=== PATIENT | male | born 1960 | race Caucasian/White ===

== ENCOUNTER → 2020-08-25 | Outpatient (CLI) | payer MEDICARE, BC ==
[~2020-08-25] MED LIST: ASPI81TA45 PO; ATOR80TA PO; CALC0.25 PO; CARV6.252 PO; DILT180C59 PO; ENAL20TA9 PO; FURO-92 PO; GENT15CR6 TP; INSU100I11 SC; INSU100I13 SC; SEVE800T7 PO; TERB250T14 PO
[2020-08-25 13:35] LABS: BASOPHILS % (AUTO) 1 % (0-1); EOSINOPHILS % (AUTO) 5 % (1-7); LYMPHOCYTES % (AUTO) 10 % (22-44); MEAN CORPUSCULAR HEMOGLOBIN 34.2 pg (27.5-34.5); MEAN PLATELET VOLUME 7.8 fL (7.4-10.4); MONOCYTES % (AUTO) 4 % (2-9); NEUTROPHILS % (AUTO) 79 % (42-75); PLATELET COUNT 239 x10^3/uL (130-400); RED BLOOD COUNT 3.12 x10^6/uL (4.38-5.82); RED CELL DISTRIBUTION WIDTH 17.1 % (9.4-14.8)
[2020-08-25 13:41] LABS: ALBUMIN 3.4 g/dL (3.4-5.0); ANION GAP 9 mmol/L (5-15); CALCIUM 8.9 mg/dL (8.5-10.1); CHLORIDE 98 mmol/L (98-107)
[2020-08-25 13:45] LABS: ALANINE AMINOTRANSFERASE 35 U/L (12-78); ALKALINE PHOSPHATASE 80 U/L (45-117); BILIRUBIN,TOTAL 0.5 mg/dL (0.2-1.0); INTERNATIONAL NORMALIZED RATIO 0.95 (0.93-1.1); PROTHROMBIN TIME 10.2 Seconds (9.6-11.5); TOTAL PROTEIN 7.6 g/dL (6.4-8.2)
[2020-08-25 13:51] LABS: MD NO
== END | disposition home or self-care (01) ==
LOC: STAR 12:31
PROVIDERS: ATTEND Surgery
DX: Z01.818 Encounter for other preprocedural examination (principal); I49.3 Ventricular premature depolarization; Z20.822 Contact with and (suspected) exposure to COVID-19
CPT/HCPCS: 36415; 71046; 80053; 85025; 85610; 85730; 93005; U0003

== ENCOUNTER 2020-08-30 11:57 | Day surgery (SDC) | payer BC, MEDICARE ==
[~2020-08-30] VITALS: Ht 165.1 cm; Wt 84.9 kg
[2020-08-30] MEDS ORDERED: CHLORHEXIDINE 15 ML UDC PO ONE (12:30)
[2020-08-30] MEDS ORDERED: CHLORHEXIDINE 15 ML UDC ONE (12:30)
[2020-08-30] MEDS ORDERED: LACTATED RINGERS 1,000 ML IV SCH (12:30)
[2020-08-30] MEDS ORDERED: SODIUM CHLORIDE 0.9% 1,000 ML IV SCH (13:00)
[2020-08-30] MEDS ORDERED: BUPIVACAINE/PF 0.5% ONE (14:15)
[2020-08-30] MEDS ORDERED: EPINEPHRINE 1 MG/ML, 1ML ONE (14:15)
[2020-08-30] MEDS ORDERED: FENTANYL PF 100 MCG/2ML ONE ×2 (14:22→15:59)
[2020-08-30] MEDS ORDERED: MIDAZOLAM 1 MG/ML, 2ML ONE (14:22)
[2020-08-30] MEDS ORDERED: ROCURONIUM 10MG/ML,5ML ONE (14:25)
[2020-08-30] MEDS ORDERED: GLYCOPYRROLATE 0.2MG/1ML, 5ML ONE (14:32)
[2020-08-30] MEDS ORDERED: ONDANSETRON 2MG/ML, 2ML ONE (14:32)
[2020-08-30] MEDS ORDERED: CEFAZOLIN 1,000 MG ONE (14:32)
[2020-08-30] MEDS ORDERED: PROPOFOL 10 MG/ML, 20ML ONE (14:32)
[2020-08-30] MEDS ORDERED: NEOSTIGMINE 1 MG/ML, 10ML ONE (14:32)
[2020-08-30] MEDS ORDERED: ROCURONIUM 10 MG/ML,10ML ONE (14:32)
[2020-08-30] MEDS ORDERED: OXYcodone 5 MG/5 ML ORAL.SOL UDC PO PRN (15:30)
[2020-08-30] MEDS ORDERED: hydrALAzine 20 MG/ML, 1ML IV PRN (15:30)
[2020-08-30] MEDS ORDERED: ACETAMINOPHEN 325 MG TABLET PO PRN (15:30)
[2020-08-30] MEDS ORDERED: HYDROmorphone 1 MG/ML, 1ML INJ IVPush PRN (15:30)
[2020-08-30] MEDS ORDERED: ONDANSETRON 2MG/ML, 2ML IVPush PRN (15:30)
[2020-08-30] MEDS ORDERED: LABETALOL 5MG/ML, 20ML IV PRN (15:30)
[2020-08-30] MEDS ORDERED: ACETAMINOPHEN 650 MG/20.3 ML UDC ONE (15:59)
[2020-08-30] MEDS ORDERED: OXYcodone 5 MG/5 ML ORAL.SOL UDC ONE (15:59)
[2020-08-30] MEDS: FENTANYL PF 100 MCG/2ML IV PRN ×2 (16:10→16:20)
== END 2020-08-30 20:30 | disposition home or self-care (01) ==
LOC: OUT 11:57
PROVIDERS: ATTEND Surgery
DX: T85.621A Displacement of intraperitoneal dialysis catheter, initial encounter (principal); K42.9 Umbilical hernia without obstruction or gangrene; K66.0 Peritoneal adhesions (postprocedural) (postinfection); E11.22 Type 2 diabetes mellitus with diabetic chronic kidney disease; I12.0 Hypertensive chronic kidney disease with stage 5 chronic kidney disease or end stage renal disease; N18.6 End stage renal disease; E78.5 Hyperlipidemia, unspecified; Z79.4 Long term (current) use of insulin; Z79.82 Long term (current) use of aspirin; Z79.899 Other long term (current) drug therapy; Z86.73 Personal history of transient ischemic attack (TIA), and cerebral infarction without residual deficits; Z99.2 Dependence on renal dialysis; Z80.1 Family history of malignant neoplasm of trachea, bronchus and lung; Y83.8 Other surgical procedures as the cause of abnormal reaction of the patient, or of later complication, without mention of misadventure at the time of the procedure
CPT/HCPCS: 49325; 49585; 82962; J0171; J0690; J1170; J2250; J2405; J2704; J2710; J3010; J7030